=== PATIENT | female | born 1980 | race Caucasian/White ===

== ENCOUNTER 2025-03-13 08:17 | Inpatient (IN) | payer BC ==
[2025-03-09 08:30] VITALS: BMI 26.6
[2025-03-09 08:45] LABS: Hematocrit 38.0 % (34.9-44.5); Hemoglobin 12.2 g/dL (12.0-15.5); Mean Corpuscular Hemoglobin 26.5 pg (27.0-33.0); Mean Corpuscular Volume 82.4 fL (81.6-98.3); Platelet Count 316 10x3/uL (150-450); Red Blood Cell (RBC) Count 4.61 10x6/uL (3.90-5.03); White Blood Cell (WBC) Count 6.03 10x3/uL (3.5-10.5)
[2025-03-09 08:56] LABS: BHCG - Serum Negative (NEGATIVE); Pregs Control Background? CLEAR/WHITE (CLR/WHITE); Pregs Control Bar Appear? YES (CONTROL BAR)
[2025-03-13] MEDS ORDERED: PROPOFOL 20 ML ONE (08:58)
[2025-03-13] MEDS ORDERED: Gabapentin 300 MG CAP ONE (09:00)
[2025-03-13] MEDS ORDERED: Famotidine/PF 20 mg/2ml Vial ONE (09:00)
[2025-03-13] MEDS ORDERED: Bupivacaine HCl 0.5%/Epinephrine 1:200,000/PF 30 ml Vial ONE (09:33)
[2025-03-13] MEDS ORDERED: Scopolamine 1 mg/72 hour Patch ONE (10:23)
[2025-03-13] MEDS ORDERED: CEFAZOLIN 2 GM VIAL ONE (10:26)
[2025-03-13] MEDS ORDERED: SUGAMMADEX SODIUM 200 MG/2 ML VIAL ONE (11:59)
[2025-03-13] MEDS ORDERED: Ondansetron PF 4 MG/2 ML Vial ONE ×2 (11:59→16:05)
[2025-03-13] MEDS ORDERED: Ketorolac Tromethamine 30 MG (1 mL) VIAL ONE (11:59)
[2025-03-13] MEDS ORDERED: Rocuronium Bromide 10 MG/ML (10ML VIAL) ONE (11:59)
[2025-03-13] MEDS ORDERED: HYDROmorphone 0.5 MG/0.5 ML SYRINGE ONE (12:28)
[2025-03-13] MEDS ORDERED: cefTRIAXone (ROCEPHIN) 1 GM VIAL ONE (14:51)
[2025-03-13] MEDS ORDERED: Ondansetron PF 4 MG/2 ML Vial IVP PRN (16:00)
[2025-03-13] MEDS ORDERED: Morphine 50 MG in Sodium Chloride 0.9% 45 ML IV SCH (16:00)
[2025-03-13] MEDS ORDERED: diphenhydrAMINE 25 MG CAP PO PRN (16:00)
[2025-03-13] MEDS ORDERED: diphenhydrAMINE 50 MG/ML VIAL IM/IV PRN (16:00)
[2025-03-13 16:56] LABS: Anion Gap 14 mmol/L (10-20); BUN (Urea Nitrogen) 8 mg/dL (7.0-18.7); Calc. Creatinine Clearance 117 mL/min (70-130); Calcium 7.9 mg/dL (7.8-10.44); Carbon Dioxide 23 mmol/L (22-29); Chloride 105 mmol/L (98-107); Glucose 163 mg/dL (70-105); Potassium 3.5 mmol/L (3.5-5.1); Sodium 138 mmol/L (136-145)
[2025-03-13] MEDS: Hyoscyamine SL 0.125 MG TAB SL SCH ×2 (17:37→18:44)
[2025-03-13] MEDS ORDERED: HYDROcodone/Acetaminophen 5/325 mg Tablet PO PRN ×2 (17:38)
[2025-03-13] MEDS ORDERED: Bisacodyl 10 MG SUPP PR PRN (17:38)
[2025-03-13] MEDS: Estradiol 0.05mg/24 Hour Patch (Weekly) TD SCH (18:44)
[2025-03-14 04:38] LABS: #Basophils Less than 0.03 10x3/uL (0.0-0.2); #Eosinophils Less than 0.03 10x3/uL (0.0-0.5); #Monocytes 0.82 10x3/uL (0.0-1.1); #Neutrophils 8.45 10x3/uL (1.5-8.4); %Basophils 0.2 % (0.0-2.0); %Eosinophils 0.0 % (0.0-6.0); %Lymphocytes 8.2 % (18.0-47.0); %Monocytes 8.1 % (0.0-10.0); %Neutrophils 83.1 % (40.0-75.0); Hematocrit 30.7 % (34.9-44.5); Hemoglobin 9.7 g/dL (12.0-15.5); Mean Corpuscular Hemoglobin 26.2 pg (27.0-33.0); Mean Corpuscular Volume 83.0 fL (81.6-98.3); Platelet Count 260 10x3/uL (150-450); Red Blood Cell (RBC) Count 3.70 10x6/uL (3.90-5.03); White Blood Cell (WBC) Count 10.16 10x3/uL (3.5-10.5)
[2025-03-14 04:51] LABS: Anion Gap 12 mmol/L (10-20); BUN (Urea Nitrogen) 9 mg/dL (7.0-18.7); Calc. Creatinine Clearance 117 mL/min (70-130); Calcium 7.7 mg/dL (7.8-10.44); Carbon Dioxide 23 mmol/L (22-29); Chloride 106 mmol/L (98-107); Glucose 127 mg/dL (70-105); Potassium 3.9 mmol/L (3.5-5.1); Sodium 137 mmol/L (136-145)
[2025-03-14] MEDS: cefTRIAXone\\ROCEPHIN 1 GM in Sodium Chloride 0.9% 100 ML IVPB SCH (15:00)
[2025-03-14] MEDS: Ondansetron PF 4 MG/2 ML Vial IVP PRN (18:19)
[2025-03-14] MEDS: Pantoprazole 40 MG DR.TAB PO SCH ×2 (20:25→20:31)
[2025-03-14] MEDS: Sertraline 25 MG TAB PO SCH (22:23)
[2025-03-15] MEDS: Simethicone Chewable 80 MG TAB PO PRN (00:56)
[2025-03-15] MEDS: diphenhydrAMINE 25 MG CAP PO PRN (00:56)
[2025-03-15 06:34] LABS: Hematocrit 26.6 % (34.9-44.5); Hemoglobin 8.4 g/dL (12.0-15.5); Mean Corpuscular Hemoglobin 26.5 pg (27.0-33.0); Mean Corpuscular Volume 83.9 fL (81.6-98.3); Platelet Count 217 10x3/uL (150-450); Red Blood Cell (RBC) Count 3.17 10x6/uL (3.90-5.03); White Blood Cell (WBC) Count 7.31 10x3/uL (3.5-10.5)
[2025-03-15 06:46] LABS: Anion Gap 12 mmol/L (10-20); BUN (Urea Nitrogen) Less than 4 mg/dL (7.0-18.7); Calc. Creatinine Clearance 145 mL/min (70-130); Calcium 7.6 mg/dL (7.8-10.44); Carbon Dioxide 22 mmol/L (22-29); Chloride 109 mmol/L (98-107); Glucose 90 mg/dL (70-105); Potassium 3.5 mmol/L (3.5-5.1); Sodium 139 mmol/L (136-145)
[2025-03-15] MEDS ORDERED: HYDROcodone/Acetaminophen 7.5/325 mg Tablet PO PRN (08:13)
[2025-03-15] MEDS: HYDROcodone/Acetaminophen 7.5/325 mg Tablet PO PRN (08:57)
[2025-03-15] MEDS: Sertraline 25 MG TAB PO SCH (20:55)
[2025-03-16 06:02] LABS: Hematocrit 26.0 % (34.9-44.5); Hemoglobin 8.1 g/dL (12.0-15.5); Mean Corpuscular Hemoglobin 26.1 pg (27.0-33.0); Mean Corpuscular Volume 83.9 fL (81.6-98.3); Platelet Count 215 10x3/uL (150-450); Red Blood Cell (RBC) Count 3.10 10x6/uL (3.90-5.03); White Blood Cell (WBC) Count 5.07 10x3/uL (3.5-10.5)
[2025-03-16 06:40] LABS: Anion Gap 12 mmol/L (10-20); BUN (Urea Nitrogen) Less than 4 mg/dL (7.0-18.7); Calc. Creatinine Clearance 137 mL/min (70-130); Calcium 8.1 mg/dL (7.8-10.44); Carbon Dioxide 26 mmol/L (22-29); Chloride 107 mmol/L (98-107); Glucose 91 mg/dL (70-105); Potassium 3.6 mmol/L (3.5-5.1); Sodium 141 mmol/L (136-145)
[2025-03-16 12:16] VITALS: BP 110/58; TEMP 98.2
== END 2025-03-16 18:45 | disposition home or self-care (01) | DRG 743 ==
LOC: CSHSDC 08:17 → CSHPP 17:38
PROVIDERS: ADMIT Obstetrics & Gynecology; ATTEND Obstetrics & Gynecology
PROC: 0UB28ZZ Excision of Bilateral Ovaries, Via Natural or Artificial Opening Endoscopic (ICD-10-PCS; principal; 2025-03-13)
PROC: 0UT9FZZ Resection of Uterus, Via Natural or Artificial Opening With Percutaneous Endoscopic Assistance (ICD-10-PCS; 2025-03-13)
PROC: 0UB78ZZ Excision of Bilateral Fallopian Tubes, Via Natural or Artificial Opening Endoscopic (ICD-10-PCS; 2025-03-13)
PROC: 0TWBX0Z Revision of Drainage Device in Bladder, External Approach (ICD-10-PCS; 2025-03-13)
PROC: 3E03329 Introduction of Other Anti-infective into Peripheral Vein, Percutaneous Approach (ICD-10-PCS; 2025-03-13)
DX: D25.1 Intramural leiomyoma of uterus (principal); D25.2 Subserosal leiomyoma of uterus; K21.9 Gastro-esophageal reflux disease without esophagitis; J45.909 Unspecified asthma, uncomplicated; Z98.890 Other specified postprocedural states; Z98.891 History of uterine scar from previous surgery; Z98.84 Bariatric surgery status; Z79.52 Long term (current) use of systemic steroids; Z79.899 Other long term (current) drug therapy; Z79.890 Hormone replacement therapy
CPT/HCPCS: 36415; 80048; 82570; 84703; 85025; 85027; 86850; 86900; 86901; 88305; 88307; A4333; J0696; J1100; J1171; J1885; J2250; J2270; J2550; J2704; J7030; S2900

== ENCOUNTER 2025-03-22 20:57 | Emergency (ER) | payer BC ==
[2025-03-22 22:29] LABS: Glucose, Urine (Dipstick) 100 mg/dL (Negative); Leukocyte Negative (Negative); Protein, Urine (Dipstick) 30 mg/dL (Neg-Trace); Specific Gravity, Urine 1.015 (1.005-1.030)
[2025-03-22 22:37] LABS: CAUTI Indications for Culture Acute Hematuria; RBC/HPF 21-50 HPF (0-3); WBC/HPF 0-3 HPF (0-3)
[2025-03-22 22:38] LABS: Bacteria/HPF 1+ HPF (None Seen)
[2025-03-22 22:39] LABS: Urine Culture Reflex No No
== END 2025-03-22 22:53 | disposition home or self-care (01) ==
LOC: CSHERS 20:57
DX: R31.9 Hematuria, unspecified (principal)
CPT/HCPCS: 81001; 87086; 99283